=== PATIENT | male | born 2000 | race Caucasian/White ===

== ENCOUNTER 2019-12-19 12:38 | Outpatient (RCR) | payer OTHER | END 2020-03-18 | disposition home or self-care (01) | LOC: WSOH | DX: S60.221A Contusion of right hand, initial encounter (principal); S62.304A Unspecified fracture of fourth metacarpal bone, right hand, initial encounter for closed fracture; F41.9 Anxiety disorder, unspecified; Z90.89 Acquired absence of other organs; Z98.890 Other specified postprocedural states; Y99.0 Civilian activity done for income or pay ==